=== PATIENT | female | born 1960 | race Caucasian/White ===

== ENCOUNTER 2024-07-17 07:35 | Outpatient (CLI) | payer BC | END 2024-07-17 07:36 | disposition home or self-care (01) | LOC: CSHULT 07:35 | PROVIDERS: ATTEND Otolaryngology Plastic Surgery within the Head & Neck | DX: E07.89 Other specified disorders of thyroid (principal); E04.1 Nontoxic single thyroid nodule | CPT/HCPCS: 76536 ==